=== PATIENT | female | born 1970 | race Caucasian/White ===

== ENCOUNTER 2017-10-01 16:18 | Emergency (ER) | payer OTHER ==
--- NOTE | 2017-10-01 16:34 | UC ---
Upper Extremity HPI - HPI Summary HPI Summary: 47 YEAR OLD FEMALE PRESENTS WITH LEFT UPPER MOLAR ABSCESS. - History of Current Complaint Stated Complaint: DENTAL Time Seen by Provider: 10/01/17 16:33 Hx Obtained From: Patient Hx Last Menstrual Period: 1month ago Onset/Duration: Gradual Onset Severity Initially: Moderate Severity Currently: Moderate Pain Scale Used: 0-10 Numeric - 8 Character: Sharp, Throbbing - Allergies/Home Medications Allergies/Adverse Reactions: Allergies Allergy/AdvReac Type Severity Reaction Status Date / Time Amoxicillin Allergy Diarrhea Verified 10/01/17 16:35 Home Medications: Home Medications Penicillin VK 500 MG TAB(NF) [Penicillin VK 500 mg Tab] 10/01/17 [History] PMH/Surg Hx/FS Hx/Imm Hx Previously Healthy: Yes - Surgical History Surgical History: Yes Surgery Procedure, Year, and Place: 1 - Family History Known Family History: Positive: Hypertension - Social History Alcohol Use: Occasionally Substance Use Type: None Smoking Status (MU): Heavy Every Day Tobacco Smoker Type: Cigarettes Amount Used/How Often: 1ppd Length of Time of Smoking/Using Tobacco: 25 years Household Exposure Type: Cigarettes Review of Systems Constitutional: Negative Skin: Negative Eyes: Negative ENT: Dental Pain Respiratory: Negative Cardiovascular: Negative Gastrointestinal: Negative Genitourinary: Negative Motor: Negative Neurovascular: Negative Musculoskeletal: Negative Neurological: Negative Psychological: Negative All Other Systems Reviewed And Are Negative: Yes Physical Exam Triage Information Reviewed: Yes Vital Signs Reviewed: Yes Eye Exam: Normal ENT Exam: Normal Dental: Positive: Abscess @ Neck exam: Normal Neck: Positive: 1 Respiratory Exam: Normal Cardiovascular Exam: Normal Abdominal Exam: Normal Musculoskeletal Exam: Normal Neurological Exam: Normal Psychological Exam: Normal Skin Exam: Normal Upper Extremity Course/Dx - Differential Dx/Diagnosis Provider Diagnoses: LEFT UPPER MOLAR ABSCESS Discharge - Discharge Plan Condition: Stable Disposition: HOME Prescriptions: Chlorhexidine MW 0.12% 473ML* [Peridex Mouth Wash 0.12%*] 15 ml MT TID PC #480 ml DOXYcycline CAP(*) [DOXYcycline 100MG CAP(*)] 100 mg PO BID #20 cap Magic M W2 Dino/Maal/Nyst/Lido* 5 ml SWISH SPIT QID PRN #120 ml PRN Reason: Pain (Dental) Naproxen [Naprosyn 500 mg] 500 mg PO BID PRN #30 tab PRN Reason: Pain Patient Education Materials: Dental Abscess (ED) Referrals: No Primary Care Phys,NOPCP [Primary Care Provider] -
[2017-10-01 16:35] VITALS: BP 156/77
[2017-10-01] MEDS ORDERED: Amoxicillin/Clavulanate TAB* 875 MG PO ONE (16:42)
[2017-10-01] MEDS ORDERED: DOXYcycline CAP(*) 100 MG PO ONE (16:43)
[2017-10-01] MEDS ORDERED: Lidocaine 2% VISCOUS* 15 ML UDC PO ONE (16:44)
[2017-10-01] MEDS ORDERED: Naproxen TAB* 250 MG PO ONE (16:45)
== END 2017-10-01 17:00 | disposition home or self-care (01) ==
LOC: UCCORT 16:18
DX: K04.7 Periapical abscess without sinus (principal); Z88.1 Allergy status to other antibiotic agents; F17.210 Nicotine dependence, cigarettes, uncomplicated
CPT/HCPCS: 99212; A9270-GY; G0463